=== PATIENT | male | born 1970 | race Caucasian/White ===

== ENCOUNTER → 2020-05-31 | Day surgery (SDC) | payer OTHER ==
[2020-05-26 10:45] LABS: BASOPHILS % 0.4 % (0.0-1.0); EOSINOPHILS # (AUTO) 0.1 (0.0-0.4); EOSINOPHILS % 1.3 % (0.0-6.0); HEMATOCRIT 50.8 % (38.2-49.6); HEMOGLOBIN 16.1 g/dL (14.0-18.0); LYMPHOCYTES # (AUTO) 2.5 (1.0-3.2); LYMPHOCYTES % 33.5 % (18.0-39.1); MEAN CORPUSCULAR HGB CONC 31.7 g/dL (31-35); MEAN CORPUSCULAR VOLUME 81.9 fL (81-99); MONOCYTES # (AUTO) 0.8 (0.2-0.8); MONOCYTES % 10.8 % (4.4-11.3); NEUTROPHILS % 53.7 % (38.7-80.0); PLATELET COUNT 291 x10e3/uL (140-360); RED CELL DISTRIBUTION WIDTH 14.2 % (11.7-14.4)
[2020-05-26 11:12] LABS: CALCIUM 9.5 mg/dL (8.4-10.2); CREATININE, SERUM 1.34 mg/dL (0.72-1.25)
[~2020-05-31] MED LIST: AMBIEN5 MG PO; ARIMIDEX1 MG PO; BUPIVACAINE HCL 0.5% INJ 30 ML VIAL INJ ONE; CLINDAMYCIN PHOS 900MG/ 50ML 50 ML IV ONE; DEXAMETHASONE SOD PHOS INJ 4 MG/ML VIAL ONE; EPHEDRINE SULFATE INJ 50 MG/ML VIAL ONE; FENTANYL CITRATE/PF 100MCG/2 ML INJ ONE; FLONASE ALLERG9.9 ML; ITRACONAZOLE100 MG PO; LIDOCAINE HCL 2% LOCAL INJ 5 ML SDV VIAL INJ ONE; LISINOPRIL10 MG PO; LOPERAMIDE2 MG PO; NEOSTIGMINE 1 MG/ML 10ML VIAL ONE; OMEPRAZOLE40 MG PO; ONDANSETRON HCL INJ 2MG/ML 2ML 2 MG/ML VIAL ONE; PROPOFOL IV EMULSION 10 MG/ML 20 ML VIAL ONE; PSEUDOEPHEDRIN120 MG PO; SEVOFLURANE INHAL SOLN 250 ML PEN BTL ONE; TESTOSTERONE INJ
[2020-05-31 11:35] VITALS: BP 112/70
--- NOTE | 2020-05-31 18:45 | Operative Report ---
DATE OF PROCEDURE: 05/31/2020 SURGEON: Savita Robertson DPM PREOPERATIVE DIAGNOSES: 1. Ferrell's neuroma, 2nd. 2. Hallux interphalangeal, left foot. 3. Hammertoe, PIPJ, left foot. POSTOPERATIVE DIAGNOSES: 1. Ferrell's neuroma, 2nd. 2. Hallux interphalangeal, left foot. 3. Hammertoe, PIPJ, left foot. PROCEDURES: 1. Excision of Ferrell's neuroma, left foot. 2. Arthrodesis, 2nd PIPJ, left foot. 3. Tr osteotomy, left foot. PATHOLOGY: None. ANESTHESIA: General anesthetic with a local block of 0.5 Marcaine plain. MATERIALS: Going to be a Smart Toe, 11 mm PIPJ arthrodesis, lot number is [id number]; an EasyClip staple 10 x 10 mm, lot number [id number]; an AlloWrap 2 x 4, lot number [id number], expiration April 05, 2021. HEMOSTASIS: Pneumatic ankle tourniquet at 250 mmHg. ESTIMATED BLOOD LOSS: Less than 10 mL. COMPLICATIONS: None. CONDITION: Stable. PROCEDURE IN DETAIL: Under mild sedation, the patient was brought to the operating room, placed on the operating table in supine position. Following IV sedation, anesthesia was obtained with a general anesthetic. At this point, the foot was scrubbed, prepped, and draped in the usual aseptic manner. The left foot was then lowered to the table. Attention was directed to the dorsal aspect of the left foot, where a linear incision was made overlying the 2nd intermetatarsal space. The incision was deepened down to the level of the inner intermetatarsal ligament. The intermetatarsal ligament was then transected. The neuroma was visualized, it was then removed from most medial and proximal aspect, it was then passed from the operating table, and sent for pathology. Remnants of neuroma were no longer visualized. The area was then flushed with copious amount of normal sterile saline solution. Tr osteotomy; attention was then directed to the proximal phalanx, where linear incision was made overlying the phalanx. The incision was deepened via sharp and blunt dissection down to the level of the bone. A standard Tr osteotomy was then performed and noted to correct the hallux interphalangeus, it was then fixated utilizing a 10 mm staple. There was noted to be adequate compression and alignment clinically with the use of intraoperative fluoroscopy. Arthrodesis, PIPJ, left foot; attention was directed to the dorsal aspect of the PIPJ, where linear incision was made overlying the joint. The incision was deepened via sharp and blunt dissection down to the level of the joint. The joint was then visualized utilizing an oscillating saw. The joint was prepared for arthrodesis, it was then fixated utilizing a Smart Toe 11 mm. There was noted to be adequate compression clinically with the use of intraoperative fluoroscopy. All areas were then flushed with copious amount of normal sterile saline solution. Human allograft was then inserted into the area of the neuroma and the Tr noted to promote healing to prevent adhesions. The area was then closed, closing the deepest layer with 3-0 Vicryl, 4-0 Vicryl, and 4-0 nylon. Clean dressing was applied consisting of Adaptic ointment, 4x4s, Kerlix, and an Venkat bandage. The tourniquet was deflated. There was noted to be hyperemic response to all the digits. The patient tolerated the procedure and anesthesia well without complications, was transferred to recovery room with vital signs stable and vascular status intact to both feet. The patient will be discharged home when he meets criteria. He was given instructions to be nonweightbearing, to ice and elevate the left foot. Follow up with me in the office and to call the office if any questions, concerns, or new problems arise. JIM Espinoza/CARON /[id number]
== END | disposition home or self-care (01) ==
LOC: OR 06:26
PROVIDERS: ATTEND Podiatrist Foot & Ankle Surgery
DX: G57.62 Lesion of plantar nerve, left lower limb (principal); M20.42 Other hammer toe(s) (acquired), left foot; M24.575 Contracture, left foot; M20.5X2 Other deformities of toe(s) (acquired), left foot; G47.33 Obstructive sleep apnea (adult) (pediatric); I10 Essential (primary) hypertension; K21.9 Gastro-esophageal reflux disease without esophagitis; Z88.0 Allergy status to penicillin; Z88.2 Allergy status to sulfonamides; Z88.8 Allergy status to other drugs, medicaments and biological substances; Z01.810 Encounter for preprocedural cardiovascular examination; Z01.812 Encounter for preprocedural laboratory examination; Z11.59 Encounter for screening for other viral diseases
CPT/HCPCS: 28080; 28285; 28298; 36415; 80048; 85025; 88304; 93005; C1713; J1100; J2001; J2405; J2704; J2710; J3010; Q4150; U0002; 76000